=== PATIENT | female | born 1995 | race African-American/Black ===

== ENCOUNTER 2024-12-03 23:13 | Emergency (ER) | payer MEDICAID ==
[~2024-12-03] VITALS: Ht 165.1 cm; Wt 101.0 kg
[2024-12-03 23:28] VITALS: O2SAT 100
[2024-12-03 23:35] VITALS: BP 126/78; PULSE 77; RESP 18; TEMP 37.1; O2SAT 100
== END 2024-12-04 03:10 | disposition left against medical advice (07) ==
LOC: ER 23:41
DX: H92.02 Otalgia, left ear (principal); Z53.21 Procedure and treatment not carried out due to patient leaving prior to being seen by health care provider